=== PATIENT | female | born 1930 | race Asian ===

== ENCOUNTER 2018-11-18 06:08 | Emergency (ER) | payer MEDICAID ==
[~2018-11-18] VITALS: Ht 162.6 cm; Wt 45.4 kg
[2018-11-18 06:15] VITALS: BP_SYST 214
--- NOTE | 2018-11-18 06:15 | NUR ---
0615 - Patient to ER bed 3 to gown for evaluation. Side rails up. Report given to MARCIA Kim.
--- NOTE | 2018-11-18 06:15 | NUR ---
Pt BIB family member with c/o high B/P and slurred speech x 3 months. Denies c/o H/A, C/P or N/V. B/P at home read 210/120. Generalized weakness with shuffled gait. No focal neurodeficits.
--- NOTE | 2018-11-18 06:40 | NUR ---
0640 - ER at bedside examining patient.
--- NOTE | 2018-11-18 06:45 | NUR ---
# 20 gauge angiocath placed to RAC. Use of asceptic technique. Opsite placed over site. Blood return noted. Blood for lab drawn from site. Flushed with 10 cc of normal saline. No evidence of infiltration noted. Patient tolerated well.
--- NOTE | 2018-11-18 06:55 | NUR ---
B/P 174/94, HR 67. Denies c/o C/P or H/A. Family member at bedside. No needs verbalized. Will continue to monitor.
[2018-11-18 07:02] LABS: BASOPHILS % (AUTO) 0.4 % (0.0-2.0); EOSINOPHILS # (AUTO) 0.1 K/uL (0.0-0.4); EOSINOPHILS % (AUTO) 2.5 % (0.0-4.0); HEMATOCRIT 39.6 % (36-48); HEMOGLOBIN 13.1 g/dL (12.0-16.0); LYMPHOCYTES # (AUTO) 0.7 K/uL (1.0-5.5); LYMPHOCYTES % (AUTO) 16.8 % (20.5-51.5); MEAN CORPUSCULAR HEMOGLOBIN 30 pg (27-31); MEAN CORPUSCULAR HGB CONC 33 % (32-36); MEAN CORPUSCULAR VOLUME 91 fL (79.0-98.0); MONOCYTES # (AUTO) 0.3 K/uL (0.0-1.0); MONOCYTES % (AUTO) 7.1 % (1.7-9.3); NEUTROPHILS # (AUTO) 3.1 K/uL (1.8-7.7); NEUTROPHILS % (AUTO) 73.2 % (40.0-70.0); PLATELET COUNT (AUTO) 187 K/uL (130-430); RED BLOOD CELL COUNT(AUTO) 4.35 MIL/uL (4.2-6.2); RED CELL DISTRIBUTION WIDTH 13.7 % (9.0-15.0); WHITE BLOOD COUNT (AUTO) 4.2 K/uL (4.8-10.8)
[2018-11-18 07:11] LABS: ANION GAP 9 (5-15); CALCIUM 9.5 mg/dL (8.4-11.0); CHLORIDE 103 mmol/L (98-107); CREATININE 0.69 mg/dL (0.55-1.30); GLUCOSE 101 mg/dL (70-99); POTASSIUM 3.5 mmol/L (3.5-5.1); SODIUM SERUM 137 mmol/L (136-145); UREA NITROGEN, BLOOD 23 mg/dL (8-21)
[2018-11-18] MEDS ORDERED: amLODIPine BESYLATE 5 MG TABLET PO ONE (07:15)
[2018-11-18 07:18] LABS: ALANINE AMINOTRANSFERASE 23 U/L (12-78); ALBUMIN 3.9 g/dL (3.4-4.8); ASPARTATE AMINOTRANSFERASE 20 U/L (10-37); TOTAL BILIRUBIN 0.5 mg/dL (0.0-1.0)
--- NOTE | 2018-11-18 07:36 | NUR ---
Patient transported to radiology via gurney, accompanied by mechanical design technician.
--- NOTE | 2018-11-18 07:53 | NUR ---
Returned from radiology, back to [facility].
--- NOTE | 2018-11-18 07:57 | NUR ---
Patient assisted to restroom.
[2018-11-18 08:09] LABS: BILIRUBIN,URINE NEGATIVE (NEGATIVE); BLOOD, URINE NEGATIVE (NEGATIVE); CLARITY/URINE CLEAR (CLEAR); COLOR,URINE YELLOW (YELLOW); GLUCOSE,URINE NEGATIVE (NEGATIVE); KETONES,URINE NEGATIVE (NEGATIVE); LEUKOCYTE ESTERASE ,URINE 1+ (NEGATIVE); NITRITE, URINE NEGATIVE (NEGATIVE); PROTEIN URINE NEGATIVE (NEGATIVE); UROBILINOGEN,URINE 0.2 (0.2-1.0)
[2018-11-18] MEDS ORDERED: cloNIDine HCL 0.1 MG TABLET PO ONE (08:15)
[2018-11-18 08:30] LABS: BACTERIA,URINE RARE /HPF (None Seen); RBC,URINE 0-3 /HPF (0-3)
[2018-11-18 09:03] VITALS: BP_SYST 157
== END 2018-11-18 09:04 | disposition home or self-care (01) ==
LOC: SED 06:08
DX: I10 Essential (primary) hypertension (principal); Z87.442 Personal history of urinary calculi
CPT/HCPCS: 36415; 70450-TC; 71045; 80053; 81000-TC; 84484; 85025; 87086; 93005; 99284